=== PATIENT | female | born 1985 | race Caucasian/White ===

== ENCOUNTER → 2017-09-11 | Outpatient (CLI) | payer OTHER ==
--- NOTE | 2017-09-11 17:57 | PN ---
PROGRESS NOTE DATE OF SERVICE: 09/11/2017 This patient is a 32-year-old lady who has been followed in the sleep center for treatment of narcolepsy. She is here to discuss results of her recent sleep study. Patient's recent sleep study was to check patient's breathing during sleep to be sure that she does not have any significant abnormalities of respiration. I discussed the results of her sleep study with the patient in detail. Total index is 2.4, which is in normal range. Apnea-hypopnea in REM sleep increased to 12, but it is not considered by today's criteria to be an indication for CPAP therapy. Oxygen level was below normal only for 0.3 minutes for the whole night. EMG showed 13 periodic limb movements per hour with 0.8 microarousals per hour, but this is very minimal in amount of movements. At the present time, the patient is on treatment with Adderall 10 mg 2 times a day. With this regimen, she feels well, without any side effects of Adderall. PHYSICAL EXAMINATION: Patient in no distress. VITAL SIGNS: BP 125/75, HR around 100, RR 16, height 5 feet 5 inches, weight 188, BMI 31.2, temperature 97.2, oxygen saturation at room air 98%. HEENT: PERRLA, EOMI. Evaluation of oropharynx showed tongue protrudes midline; wide pillars. NECK: Supple. No JVD. Thyroid is not palpable. LUNGS: Clear to percussion and to auscultation. Good air exchange. No wheezing or rhonchi. HEART: S1, S2 regular. No murmurs, gallops or rubs. ABDOMEN: Slightly obese. EXTREMITIES : No clubbing or cyanosis. DIRECTOR OF [facility]HB[facility]HOOD [facility]ICE [facility]: Awake, alert, and oriented X3. Cranial nerves 2 to 7 intact. There is no fasciculation or atrophy. noted. No focal deficits observed. IMPRESSION: 1. Narcolepsy, mostly controlled with Adderall. 2. No significant respiratory abnormalities during sleep by results of polysomnogram. 3. Mild obesity; body mass index 31.2. 4. History of headaches. 5. Thyroid nodule. 6. History of sinusitis with possible nasal septum deviation. PLAN: 1. Sleep hygiene with regular time in bed for at least 7-1/2 or 8 hours. 2. Daytime naps permitted. 3. Patient will continue treatment with Adderall at the same dose. 4. Precautions related to driving. No driving if feeling any sleepiness. 5. Watching and losing weight. Thank you very much for allowing me to participate in the management of your patient. Sincerely, Trey Valle MD, PhD, FAASM Diplomat of [employer] of [facility] MMODL / IJN: [id number] /
== END | disposition home or self-care (01) ==
LOC: SLEEP 14:47
PROVIDERS: ATTEND Internal Medicine
DX: G47.419 Narcolepsy without cataplexy (principal); E66.9 Obesity, unspecified; E04.1 Nontoxic single thyroid nodule; Z68.31 Body mass index [BMI] 31.0-31.9, adult; Z86.69 Personal history of other diseases of the nervous system and sense organs; Z87.09 Personal history of other diseases of the respiratory system; Z79.899 Other long term (current) drug therapy

== ENCOUNTER → 2018-05-29 | Outpatient (CLI) | payer OTHER ==
--- NOTE | 2018-05-29 14:16 | US ---
EXAMINATION TYPE: US pelvis complete transvag DATE OF EXAM: 05/29/2018 COMPARISON: NONE CLINICAL HISTORY: R10.2 Pelvic and perineal pain. TECHNIQUE: . Transabdominal sonographic images of the pelvis were acquired. Transvaginal sonographi c images were medically necessary to better assess the following anatomy: Right ovary Date of LMP: 05/10/2018 EXAM MEASUREMENTS: Uterus: 8.8 x 3.8 x 4.4 cm Endometrial Stripe: 1.0 cm Right Ovary: 4.2 x 3.1 x 3.1 cm Left Ovary: 2.5 x 1.7 x 1.8 cm 1. Uterus: Anteverted Nabothian cysts visualized 2. Endometrium: wnl 3. Right Ovary: Complex cystic area with daughter cyst visualized measuring 1.8 x 2.0 x 2.0 cm 4. Left Ovary: 2.5 x 1.7 x 1.8 cm 5. Bilateral Adnexa: wnl 6. Posterior cul-de-sac: wnl Urinary bladder is visualized appears normal. IMPRESSION: 1. Complex cyst right ovary. Follow-up exam in 6 weeks or following the next normal menstrual period is recommended.
== END | disposition home or self-care (01) ==
LOC: RADUSWWP 13:31
PROVIDERS: ATTEND Family Medicine
DX: N83.291 Other ovarian cyst, right side (principal)
CPT/HCPCS: 76830; 76856

== ENCOUNTER → 2018-06-15 | Outpatient (CLI) | payer OTHER ==
--- NOTE | 2018-06-15 10:57 | US ---
EXAMINATION TYPE: US pelvis complete transvag DATE OF EXAM: 06/15/2018 COMPARISON: Prior pelvic ultrasound 09/29/2017 CLINICAL HISTORY: N83.209 Unspecified ovarian cyst. TECHNIQUE: Transvaginal (TV) and Transabdominal (TA) . Transabdominal sonographic images of the pel vis were acquired. Transvaginal sonographic images were medically necessary to better assess the fol lowing anatomy: Left ovary Date of LMP: 06/07/18 EXAM MEASUREMENTS: Uterus: 8.1 x 3.8 x 4.6 cm Endometrial Stripe: 0.5 cm Right Ovary: 2.2 x 1.3 x 1.4 cm Left Ovary: 2.0 x 1.3 x 1.5 cm 1. Uterus: Anteverted wnl 2. Endometrium: wnl 3. Right Ovary: wnl 4. Left Ovary: wnl 5. Bilateral Adnexa: wnl 6. Posterior cul-de-sac: wnl Rt ovarian cyst appears to have resolved. IMPRESSION: Cystic focus right ovary is no longer evident
== END | disposition home or self-care (01) ==
LOC: RADUSMAIN 08:20
PROVIDERS: ATTEND Family Medicine
DX: N83.209 Unspecified ovarian cyst, unspecified side (principal)
CPT/HCPCS: 76830; 76856

== ENCOUNTER 2020-05-10 02:47 | Emergency (ER) | payer OTHER ==
[2020-05-10 02:56] VITALS: RESP 18
[2020-05-10] MEDS ORDERED: IBUPROFEN 400 MG TAB PO STA (03:23)
[2020-05-10 03:37] LABS: Appearance,Urine Cloudy (Clear); Bacteria,Urine Rare /hpf; Bilirubin,Urine Negative (Negative); Blood,Urine Small (Negative); Budding Yeast,Urine Few /hpf; Color,Urine Light Yellow; Glucose,Urine (UA) Negative (Negative); Ketones,Urine Negative (Negative); Leukocyte Esterase,Urine Large (Negative); Mucus,Urine Rare /hpf; Nitrite,Urine Negative (Negative); Protein,Urine 1+ (Negative); RBC,Urine 26 /hpf (0-5); Specific Gravity,Urine 1.013 (1.001-1.035); Squamous Epithelial Cell,Urine 3 /hpf (0-4); Urobilinogen,Urine <2.0 mg/dL (<2.0); WBC,Urine 41 /hpf (0-5)
--- NOTE | 2020-05-10 04:45 | CT ---
EXAMINATION TYPE: CT abdomen pelvis wo con DATE OF EXAM: 05/10/2020 COMPARISON: None HISTORY: low left back/ flank pain CT DLP: 653.9 mGycm Automated exposure control for dose reduction was used. Lung bases are clear. There is no pleural effusion. Heart size is normal. There is no pericardial eff usion. There are multiple hepatic cysts that measure up to 2 cm. Spleen is intact. Stomach is intact. There is no pancreatic mass. Appendix appears normal. There is no adrenal mass. Kidneys have normal size. There is no hydronephrosis. Ureters are not dilat ed. There is 2 cm renal cortical calcification upper pole right kidney. This could relate to old infl ammatory process. There is no retroperitoneal adenopathy. Bladder distends smoothly. Uterus is anteverted. There is 4.4 x 3.5 cm cyst on the left ovary. There is no inguinal hernia. There is no free fluid in the pelvis. There is no mesenteric edema. There is no ascites or free air. There is no bowel obstruction. Lumbar vertebra have normal alignment. Disc spaces are normal. Posterior elements are intact. Bony pe lvis is intact. Hip joints appear normal. IMPRESSION: Normal appendix. Right-sided renal parenchymal calcification could relate to old infection. No renal stone or obstruction. Large left ovarian cyst. Multiple small hepatic cysts.
[2020-05-10] MEDS ORDERED: SULFAMETHOX-TMP 800-160MG 1 EACH TAB PO STA (04:55)
[2020-05-10] MEDS ORDERED: PHENAZOPYRIDINE 100 MG TAB PO STA (04:55)
--- NOTE | 2020-05-10 04:58 | ED ---
Female Urogenital HPI - General Chief complaint: Urogenital Stated complaint: Abdominal/Back Pain Time Seen by Provider: 05/10/20 03:00 Source: patient Mode of arrival: ambulatory Limitations: no limitations - History of Present Illness Complaint: pelvic pain Onset/Timin -: days(s) Location: LLQ Radiation: non-radiating Severity: moderate Quality: cramping, sharp Consistency: constant Improves with: none Worsens with: none Patient : No - Related Data Previous Rx's Medication Instructions Recorded Phenazopyridine [Pyridium] 100 mg PO TID #6 tablet 05/10/20 Sulfamethox-Tmp 800-160Mg [Bactrim 1 each PO Q12HR #6 tab 05/10/20 Ds] Allergies Allergy/AdvReac Type Severity Reaction Status Date / Time codeine Allergy Hallucinati Verified 05/10/20 02:57 ons Review of Systems ROS Statement: Those systems with pertinent positive or pertinent negative responses have been documented in the HPI. ROS Other: All systems not noted in ROS Statement are negative. Constitutional: Denies: fever, chills Respiratory: Denies: cough, dyspnea Cardiovascular: Denies: chest pain, palpitations, edema Gastrointestinal: Reports: as per HPI, abdominal pain. Denies: nausea, vomiting, diarrhea, constipation, melena, hematochezia Genitourinary: Reports: urgency, frequency. Denies: dysuria, hematuria, discharge, abnormal menses Musculoskeletal: Denies: back pain Skin: Denies: rash Neurological: Denies: headache, weakness, numbness Past Medical History Past Medical History: No Reported History History of Any Multi-Drug Resistant Organisms: None Reported Past Surgical History: Cholecystectomy, Orthopedic Surgery Additional Past Surgical History / Comment(s): cervical CA Past Psychological History: Anxiety, Depression, PTSD Smoking Status: Former smoker Past Alcohol Use History: Occasional Past Drug Use History: Marijuana General Exam Limitations: no limitations General appearance: alert, in no apparent distress Head exam: Present: atraumatic, normocephalic Eye exam: Present: normal appearance. Absent: scleral icterus, conjunctival injection ENT exam: Present: normal oropharynx Respiratory exam: Present: normal lung sounds bilaterally. Absent: respiratory distress, wheezes, rales, rhonchi, stridor Cardiovascular Exam: Present: regular rate, normal rhythm, normal heart sounds. Absent: systolic murmur, diastolic murmur, rubs, gallop GI/Abdominal exam: Present: soft, tenderness (There is mild left lower quadrant tenderness without rebound or guarding.). Absent: distended, guarding, rebound, rigid, mass Extremities exam: Present: normal inspection, normal capillary refill. Absent: pedal edema, calf tenderness Back exam: Present: normal inspection. Absent: CVA tenderness (R), CVA tenderness (L) Neurological exam: Present: alert Skin exam: Present: warm, dry, intact, normal color. Absent: rash Course Vital Signs 05/10/20 05/10/20 02:52 05:04 Temperature 98.1 F 98.8 F Pulse Rate 102 H 80 Respiratory 18 18 Rate Blood Pressure 133/82 124/72 O2 Sat by Pulse 100 18 L Oximetry Medical Decision Making - Lab Data Lab Results 05/10/20 05/10/20 Range/Units 03:27 03:27 Urine Color Light Yellow Urine Appearance Cloudy H (Clear) Urine pH 7.0 (5.0-8.0) Ur Specific [place] 1.013 (1.001-1.035) Urine Protein 1+ H (Negative) Urine Glucose (UA) Negative (Negative) Urine Ketones Negative (Negative) Urine Blood Small H (Negative) Urine Nitrite Negative (Negative) Urine Bilirubin Negative (Negative) Urine Urobilinogen <2.0 (<2.0) mg/dL Ur Leukocyte Esterase Large H (Negative) Urine RBC 26 H (0-5) /hpf Urine WBC 41 H (0-5) /hpf Urine WBC Clumps Few H (None) /hpf Ur Squamous Epith Cells 3 (0-4) /hpf Urine Bacteria Rare H (None) /hpf Urine Mucus Rare H (None) /hpf Urine Yeast (Budding) Few H (None) /hpf Urine HCG, Qual Not Detected (Not Detectd) Disposition Clinical Impression: Urinary tract infection, Ovarian cyst Disposition: HOME SELF-CARE Condition: Good Instructions (If sedation given, give patient instructions): Ovarian Cyst (ED), Urinary Tract Infection in Women (ED) Prescriptions: Sulfamethox-Tmp 800-160Mg [Bactrim Ds] 1 each PO Q12HR #6 tab Phenazopyridine [Pyridium] 100 mg PO TID #6 tablet Is patient prescribed a controlled substance at d/c from ED?: No Referrals: Angelia Victor MD [Primary Care Provider] - 1-2 days
[2020-05-10 05:05] VITALS: BP 124/72; PULSE 80; TEMP 98.8
== END 2020-05-10 05:28 | disposition home or self-care (01) ==
LOC: EC 02:47
DX: N39.0 Urinary tract infection, site not specified (principal); N83.202 Unspecified ovarian cyst, left side; Z88.5 Allergy status to narcotic agent; Z87.891 Personal history of nicotine dependence; Z90.49 Acquired absence of other specified parts of digestive tract; Z85.41 Personal history of malignant neoplasm of cervix uteri
CPT/HCPCS: 74176; 81001; 81025; 99284

== ENCOUNTER → 2020-05-17 | Outpatient (CLI) | payer OTHER ==
[2020-05-17 09:24] LABS: Basophils # (A) 0.1 k/uL (0-0.2); Basophils % (A) 1 %; Eosinophils # (A) 0.2 k/uL (0-0.7); Eosinophils % (A) 3 %; HCT 42.3 % (34.0-46.0); HGB 13.3 gm/dL (11.4-16.0); Lymphocytes # (A) 2.3 k/uL (1.0-4.8); Lymphocytes % (A) 28 %; MCH 26.5 pg (25.0-35.0); MCHC 31.4 g/dL (31.0-37.0); MCV 84.5 fL (80.0-100.0); Mean Platelet Volume 7.7; Monocytes # (A) 0.4 k/uL (0-1.0); Monocytes % (A) 5 %; Neutrophils % (A) 62 %; Platelet Count 299 k/uL (150-450); RDW 13.6 % (11.5-15.5)
[2020-05-17 17:06] LABS: African American GFR (CKD) 109.9 (60.0-200.0); Albumin 4.1 g/dL (3.80-4.90); Albumin/Globulin Ratio 1.95 (1.60-3.17); Anion Gap 9.4 mmol/L (4.00-12.00); BUN/Creat Ratio 17.5 Ratio (12.00-20.00); Calcium 9.2 mg/dL (8.7-10.3); Carbon Dioxide 24.6 mmol/L (21.6-31.8); Chol/HDL Ratio 3.54; Globulin 2.1 g/dL (1.6-3.3); LDL Cholesterol,Calculated 113.4 mg/dL (0.0-131.0); Non-African American GFR(CKD) 94.8 (60.0-200.0); Potassium 4.5 mmol/L (3.5-5.5); Total Bilirubin 0.7 mg/dL (0.2-1.2); Total Protein 6.2 g/dL (6.2-8.2); VLDL Calculation 13.6 mg/dL (5.00-40.00)
[2020-05-19 01:22] LABS: % Iron Saturation 10.86 (12.00-45.00)
[2020-05-19 01:31] LABS: Ferritin 21.1 ng/mL (10.0-291.0)
== END | disposition home or self-care (01) ==
LOC: LABWHC1 08:30
PROVIDERS: ATTEND Family Medicine
DX: E04.1 Nontoxic single thyroid nodule (principal); Q85.00 Neurofibromatosis, unspecified
CPT/HCPCS: 36415; 80053; 80061; 82728; 83540; 83550; 84443; 85025

== ENCOUNTER → 2020-05-29 | Outpatient (CLI) | payer OTHER ==
--- NOTE | 2020-05-30 07:37 | US ---
EXAMINATION TYPE: US thyroid st tissue head/neck DATE OF EXAM: 05/29/2020 COMPARISON: NONE CLINICAL HISTORY: E04.1 SINGLE THYROID NODULE. GLAND SIZE: Right Lobe: 4.4 x 1.6 x 1.9 cm Overall Parenchyma: heterogenous Left Lobe: 5.2 x 1.4 x 1.7 cm Overall Parenchyma: heterogeneous Isthmus Thickness: 0.5 cm NODULES RIGHT: # of nodules measured on right: 0 LEFT: # of nodules measured on left: 1 1. 0.9 X 0.6 x 0.9 cm hypoechoic solid nodule at the lower pole with well-defined margins; . This nodule is wider than tall and shows no intranodular vascularity. Prior size: 1.0 x 0.6 x 0.7 cm ISTHMUS: # of nodules measured in the isthmus: 0 Bilateral neck scanned, no evidence of lymphadenopathy. IMPRESSION: Nonspecific subcentimeter thyroid nodularity.
--- NOTE | 2020-05-30 07:38 | US ---
EXAMINATION TYPE: US pelvic complete DATE OF EXAM: 05/29/2020 COMPARISON: US 06/15/2018, CT 05/10/2020 CLINICAL HISTORY: N83.202 LT OVARIAN CYST. Follow up to CT TECHNIQUE: . Transabdominal sonographic images of the pelvis were acquired. Date of LMP: 1 week ago EXAM MEASUREMENTS: Uterus: 9.4 x 3.9 x 4.8 cm Endometrial Stripe: 0.7 cm Right Ovary: 2.5 x 2.0 x 1.7 cm Left Ovary: 2.4 x 1.9 x 2.7 cm 1. Uterus: Anteverted wnl 2. Endometrium: wnl 3. Right Ovary: wnl 4. Left Ovary: Cyst visualized measuring 1.6 x 1.3 x 1.5 cm 5. Bilateral Adnexa: wnl 6. Posterior cul-de-sac: wnl IMPRESSION: Probable functional left ovarian cyst. This could be confirmed with follow-up study in 6 weeks.
== END | disposition home or self-care (01) ==
LOC: RADUSWWP 15:19
PROVIDERS: ATTEND Family Medicine
DX: E04.2 Nontoxic multinodular goiter (principal); N83.202 Unspecified ovarian cyst, left side
CPT/HCPCS: 76536; 76856

== ENCOUNTER → 2021-01-17 | Outpatient (CLI) | payer OTHER ==
--- NOTE | 2021-01-18 11:38 | US ---
EXAMINATION TYPE: US thyroid st tissue head/neck DATE OF EXAM: 01/17/2021 COMPARISON: US's 05/29/2020 CLINICAL HISTORY: E04.9 nontoxic goiter. GLAND SIZE: Right Lobe: 5.0 x 1.3 x 1.1 cm Overall Parenchyma: homogenous Left Lobe: 5.1 x 1.4 x 1.7 cm Overall Parenchyma: homogeneous Isthmus Thickness: 0.4 cm NODULES RIGHT: # of nodules measured on right: 0 LEFT: # of nodules measured on left: 1 1. 1.1 X 0.7 x 0.8 cm, lower lateral, solid or almost completely solid, hypoechoic nodule, which is wider than tall, with smooth margins, without echogenic foci. Prior size: 0.9 x 0.6 x 0.9 cm ISTHMUS: # of nodules measured in the isthmus: 0 Bilateral neck scanned, no evidence of lymphadenopathy. IMPRESSION: Single 1.1 cm left thyroid nodule is a BI-RADS 4 nodule. This has minimally increased in size since p rior exam. This is within the criteria for continued sonographic follow-up. 2017 ACR TI-RADS LEVEL: 4 Highest TI-RADS level nodule reported
== END | disposition home or self-care (01) ==
LOC: RADUSWWP 16:49
PROVIDERS: ATTEND Family Medicine
DX: E04.1 Nontoxic single thyroid nodule (principal)
CPT/HCPCS: 76536

== ENCOUNTER → 2021-02-01 | Outpatient (CLI) | payer OTHER ==
--- NOTE | 2021-02-01 18:23 | ECHOF ---
Referral Reason:R06.09 Dysnea on exertion MEASUREMENTS -------- HEIGHT: 165.1 cm WEIGHT: 88.9 kg BP: RVIDd: 3.3 cm (< 3.3) IVSd: 0.9 cm (0.6 - 1.1) LVIDd: 4.1 cm (3.9 - 5.3) LVPWd: 1.2 cm (0.6 - 1.1) IVSs: 1.3 cm LVIDs: 3.0 cm LVPWs: 1.4 cm LAESV Index (A-L): 20.19 ml/m Ao Diam: 2.9 cm (2.0 - 3.7) AV Cusp: 2.1 cm (1.5 - 2.6) MV EXCURSION: 23.384 mm (> 18.000) MV EF SLOPE: 194 mm/s (70 - 150) EPSS: 1.2 cm MV E Eduardo: 0.88 m/s MV DecT: 216 ms MV A Eduardo: 0.58 m/s MV E/A Ratio: 1.52 RAP: 5.00 mmHg RVSP: 32.80 mmHg FINDINGS -------- Sinus rhythm. This was a technically adequate study. The left ventricular size is normal. Left ventricular wall thickness is normal. Overall left vent ricular systolic function is normal with, an EF between 55 - 60 %. The diastolic filling pattern is normal for the age of the patient 9.06. The right ventricle is mildly enlarged. Normal LA size by volume 22+/-6 ml/m2. The right atrium is mildly enlarged. Interatrial and interventricular septum intact. The aortic valve is trileaflet, and appears structurally normal. No aortic stenosis or regurgitation. The mitral valve is normal. There is trace mitral regurgitation. The tricuspid valve appears structurally normal. Mild tricuspid regurgitation present. Right vent ricular systolic pressure is normal at < 35 mmHg. The right ventricular systolic pressure, as measu red by Doppler, is 32.80mmHg. There is no pulmonic regurgitation present. The aortic root size is normal. Normal inferior vena cava with normal inspiratory collapse consistent with estimated right atrial pre ssure of 5 mmHg. There is no pericardial effusion. CONCLUSIONS -------- 1. Left ventricular wall thickness is normal. 2. Overall left ventricular systolic function is normal with, an EF between 55 - 60 %. 3. The right ventricle is mildly enlarged. 4. Normal LA size by volume 22+/-6 ml/m2. 5. The right atrium is mildly enlarged. 6. The aortic valve is trileaflet, and appears structurally normal. No aortic stenosis or regurgitati on. 7. There is trace mitral regurgitation. 8. Mild tricuspid regurgitation present. OFFICE ANALYST: Melonie Tillman RDCS
== END | disposition home or self-care (01) ==
LOC: RADECHMAIN 13:00
PROVIDERS: ATTEND Family Medicine
DX: I08.1 Rheumatic disorders of both mitral and tricuspid valves (principal)
CPT/HCPCS: 93306

== ENCOUNTER → 2021-09-26 | Outpatient (CLI) | payer OTHER ==
--- NOTE | 2021-09-27 09:23 | NM ---
EXAMINATION TYPE: NM thyroid image w uptake DATE OF EXAM: 09/27/2021 COMPARISON: Ultrasound dated 08/27/2021, 01/17/2021 HISTORY: E04.1, thyroid nodule TECHNIQUE: Thyroid iodine uptake is calculated and images performed after the oral administration of 312 uCi 1-123 Capsule. FINDINGS: There is suspected increased uptake. The 4 hour iodine uptake is calculated at 17.1% (norm al range 8-14%). The 24-hour iodine uptake is calculated at 40.7% (normal range 15-35%). Uptake is homogenous but increased. Equivocal for decreased uptake at the posterior aspect of the lef t lobe of the gland corresponding to patient's thyroid nodule. Measurement of the thyroid nodule was thought to be under represented. True measurements is estimated at 1.5 cm. IMPRESSION: Correlate for possible Graves' disease. Recommend fine-needle aspiration of patient's lef t lower lobe thyroid nodule.
== END | disposition home or self-care (01) ==
LOC: RADNMMAIN 08:36
PROVIDERS: ATTEND Family Medicine
DX: E04.1 Nontoxic single thyroid nodule (principal)
CPT/HCPCS: 78014; A9516

== ENCOUNTER 2021-10-17 12:30 | Day surgery (SDC) | payer OTHER ==
[2021-10-17] MEDS ORDERED: ALPRAZolam 0.5 MG TAB PO PRN (13:26)
[2021-10-17 13:28] VITALS: TEMP 98.6
[2021-10-17 15:09] VITALS: BP 120/66; PULSE 78; RESP 18
--- NOTE | 2021-10-17 15:13 | US ---
EXAMINATION TYPE: US FNA thyroid first lesion DATE OF EXAM: 10/17/2021 COMPARISON: NONE HISTORY: Thyroid nodule. Maximal barrier technique was utilized. After informed consent, skin overlying the left thyroid nodu le was localized with ultrasound and the overlying skin prepped and draped. Ultrasound was utilized u sing sterile technique. Lidocaine was used for local anesthesia. Five passes with a 25-gauge needle were made into the nodule and aspirated specimen was submitted to cytology. Following the procedure hemostasis achieved. No immediate complication. The patient discharged in stable condition. IMPRESSION: STATUS POST ULTRASOUND GUIDED FINE NEEDLE ASPIRATION OF LEFT THYROID NODULE, PATHOLOGY IS PENDING. THIS PROCEDURE WAS PERFORMED BY THE UNDERSIGNED.
== END 2021-10-17 15:10 | disposition home or self-care (01) ==
LOC: RADPROMAIN 12:30
PROVIDERS: ATTEND Family Medicine
DX: E04.1 Nontoxic single thyroid nodule (principal)
CPT/HCPCS: 10005; 88173; 88305

== ENCOUNTER → 2022-03-22 | Outpatient (CLI) | payer OTHER | END | disposition home or self-care (01) | LOC: LABWHC1 16:14 | PROVIDERS: ATTEND Family Medicine | DX: E04.1 Nontoxic single thyroid nodule (principal) | CPT/HCPCS: 36415; 84439; 84443; 84481 ==

== ENCOUNTER 2023-10-21 19:42 | Inpatient (IN) | payer OTHER ==
[2023-10-21] MEDS: LACTATED RINGERS 1,000 ML IV ONE ×2 (00:14→01:55)
--- NOTE | 2023-10-21 20:06 | ED ---
General Adult HPI - General Chief complaint: OB/Uterine Contractions Stated complaint: vaginal bleeding possibly Time Seen by Provider: 10/21/23 19:50 Source: patient Mode of arrival: ambulatory Limitations: no limitations - History of Present Illness Initial comments: 38-year-old female presenting with chief complaint of vaginal bleeding. Patient states that her LMP was 08/12/2023. menstrual cycle was different than her normal menstrual cycles, it seemed to be much heavier than usual. After that she did not have any bleeding until October 14 when she had some spotting. She reports that for the last 5 days she has had heavy vaginal bleeding with large palm sized clots. She took a test at home tonight which was positive. She is a . - Related Data Home Medications Medication Instructions Recorded Confirmed modafiniL [Provigil] 200 mg PO DAILY 10/09/21 10/17/21 Allergies Allergy/AdvReac Type Severity Reaction Status Date / Time codeine Allergy Hallucinati Verified 10/21/23 19:48 ons Review of Systems ROS Statement: Those systems with pertinent positive or pertinent negative responses have been documented in the HPI. ROS Other: All systems not noted in ROS Statement are negative. Past Medical History Past Medical History: Cancer, Thyroid Disorder Additional Past Medical History / Comment(s): thyroid, had irreg heart beat x 8 weeks post covid vaccine. cervical cancer - had surgery History of Any Multi-Drug Resistant Organisms: None Reported Past Surgical History: Cholecystectomy, Orthopedic Surgery Additional Past Surgical History / Comment(s): cervical CA, wrist surgery Additional Past Anesthesia/Blood Transfusion Reaction / Comment(s): heart palpitation with surgeries in past. Past Psychological History: Anxiety, Depression, PTSD Smoking Status: Former smoker Past Alcohol Use History: Occasional Past Drug Use History: Marijuana General Exam Limitations: no limitations General appearance: alert, in no apparent distress Head exam: Present: atraumatic, normocephalic Eye exam: Present: normal appearance Neck exam: Present: normal inspection Respiratory exam: Present: normal lung sounds bilaterally. Absent: respiratory distress, wheezes, rales, rhonchi, stridor Cardiovascular Exam: Present: normal rhythm, tachycardia, normal heart sounds. Absent: systolic murmur, diastolic murmur, rubs, gallop, clicks GI/Abdominal exam: Present: soft, tenderness (Lower abdominal). Absent: distended, guarding, rebound, rigid Neurological exam: Present: alert, oriented X3 Psychiatric exam: Present: normal affect, normal mood Skin exam: Present: warm, dry Course Vital Signs 10/21/23 10/21/23 19:43 23:15 Temperature 98.6 F Pulse Rate 120 H 81 Respiratory 18 18 Rate Blood Pressure 124/72 125/75 O2 Sat by Pulse 98 98 Oximetry Medical Decision Making - Medical Decision Making Was pt. sent in by a medical professional or institution (, PA, OUTSIDE MAINTENANCE WORKER, urgent care, hospital, or detention...) When possible be specific @ -No Did you speak to anyone other than the patient for history (EMS, parent, family, police, friend...)? What history was obtained from this source @ -No Did you review nursing and triage notes (agree or disagree)? Why? @ -I reviewed and agree with nursing and triage notes Were old charts reviewed (outside hosp., previous admission, EMS record, old EK G, old radiological studies, urgent care reports/EKG's, detention records)? Report findings @ -No old charts were reviewed Differential Diagnosis (chest pain, altered mental status, abdominal pain women, abdominal pain men, vaginal bleeding, weakness, fever, dyspnea, syncope, headache, dizziness, GI bleed, back pain, seizure, CVA, palpatations, mental health, musculoskeletal)? @ -MDM Differential Vaginal Bleeding: Spontaneous , threatened , molar , ectopic , bloody show, incompetent cervix, abruptioplacenta, placenta previa, uterine rupture, dysfunctional uterine bleeding, hemorrhage, uterine fibroids. ... This is not meant to be an all-inclusive list EKG interpreted by me (3pts min.). @ -As above X-rays interpreted by me (1pt min.). @ -None done CT interpreted by me (1pt min.). @ -None done U/S interpreted by me (1pt. min.). @ -Ultrasound shows complex right adnexal lesion with vascularity in a patient with positive test and no sign of intrauterine gestation. Findings are concerning for ectopic What testing was considered but not performed or refused? (CT, X-rays, U/S, labs)? Why? @ -None What meds were considered but not given or refused? Why? @ -None Did you discuss the management of the patient with other professionals (professionals i.e. , PA, OUTSIDE MAINTENANCE WORKER, lab, RT, psych nurse, social media marketer, rubber goods finisher, teacher, financial compliance officer, case planner)? Give summary @ -I spoke with Dr. Boyle who came down to the ER and evaluated the patient, it was determined that the patient should go to the OR tonight Was smoking cessation discussed for >3mins.? @ -No Was critical care preformed (if so, how long)? @ -No Were there social determinants of health that impacted care today? How? (Homelessness, low income, unemployed, alcoholism, drug addiction, transportation, low edu. Level, literacy, decrease access to med. care, detention, rehab)? @ -No Was there de-escalation of care discussed even if they declined (Discuss DNR or withdrawal of care, Hospice)? DNR status @ -No What co-morbidities impacted this encounter? (DM, HTN, Smoking, COPD, CAD, Cancer, CVA, ARF, Chemo, Hep., AIDS, mental health diagnosis, sleep apnea, morbid obesity)? @ -None Was patient admitted / discharged? Hospital course, mention meds given and route, prescriptions, significant lab abnormalities, going to OR and other pertinent info. @ -38-year-old female presenting with chief complaint of right-sided pelvic pain and vaginal bleeding. She has had spotting since the end of September, for the last 5 days she has had heavy vaginal bleeding. hCG is 21,348.5. Hemoglobin is stable at 11.6. The patient is hemodynamically stable. Ultrasound is positive for ectopic . Blood type is A+. Patient is evaluated by Dr. Boyle and taken to the OR. I discussed this case with my attending Dr. Melchor Undiagnosed new problem with uncertain prognosis? @ -No Drug Therapy requiring intensive monitoring for toxicity (Heparin, Nitro, Insulin, Cardizem)? @ -No Were any procedures done? @ -No Diagnosis/symptom? @ -Ectopic Acute, or Chronic, or Acute on Chronic? @ -Acute Uncomplicated (without systemic symptoms) or Complicated (systemic symptoms)? @ -Complicated Side effects of treatment? @ -No Exacerbation, Progression, or Severe Exacerbation? @ -No Poses a threat to life or bodily function? How? (Chest pain, USA, NC, pneumonia, PE, COPD, DKA, ARF, appy, cholecystitis, CVA, Diverticulitis, Homicidal, Suicidal, threat to staff... and all critical care pts) @ -Yes - Lab Data Result diagrams: 10/21/23 20:05 10/21/23 20:05 Lab Results 10/21/23 10/21/23 10/21/23 Range/Units 20:05 20:05 20:05 WBC 9.7 (3.8-10.6) k/uL RBC 4.28 (3.80-5.40) m/uL Hgb 11.6 (11.4-16.0) gm/dL Hct 34.6 (34.0-46.0) % MCV 81.0 (80.0-100.0) fL MCH 27.2 (25.0-35.0) pg MCHC 33.6 (31.0-37.0) g/dL RDW 13.9 (11.5-15.5) % Plt Count 225 (150-450) k/uL MPV 8.5 Neutrophils % 63 % Lymphocytes % 27 % Monocytes % 5 % Eosinophils % 3 % Basophils % 0 % Neutrophils # 6.1 (1.3-7.7) k/uL Lymphocytes # 2.6 (1.0-4.8) k/uL Monocytes # 0.5 (0-1.0) k/uL Eosinophils # 0.3 (0-0.7) k/uL Basophils # 0.0 (0-0.2) k/uL PT 10.4 (10.0-12.5) sec INR 0.9 (<1.2) APTT 26.4 (22.0-30.0) sec Sodium 136 L (137-145) mmol/L Potassium 3.6 (3.5-5.1) mmol/L Chloride 106 (98-107) mmol/L Carbon Dioxide 22 (22-30) mmol/L Anion Gap 8 mmol/L BUN 20 H (7-17) mg/dL Creatinine 0.56 (0.52-1.04) mg/dL Est GFR (CKD-EPI)AfAm >90 (>60 ml/min/1.73 sqM) Est GFR (CKD-EPI)NonAf >90 (>60 ml/min/1.73 sqM) Glucose 111 H (74-99) mg/dL Calcium 8.9 (8.4-10.2) mg/dL Total Bilirubin 1.1 (0.2-1.3) mg/dL AST 20 (14-36) U/L ALT 16 (4-34) U/L Alkaline Phosphatase 56 (38-126) U/L Total Protein 6.6 (6.3-8.2) g/dL Albumin 3.9 (3.5-5.0) g/dL HCG, Quant 90719.5 mIU/mL Blood Type Blood Type Recheck Bld Type Recheck Status Antibody Screen Spec Expiration Date 10/21/23 Range/Units 20:05 WBC (3.8-10.6) k/uL RBC (3.80-5.40) m/uL Hgb (11.4-16.0) gm/dL Hct (34.0-46.0) % MCV (80.0-100.0) fL MCH (25.0-35.0) pg MCHC (31.0-37.0) g/dL RDW (11.5-15.5) % Plt Count (150-450) k/uL MPV Neutrophils % % Lymphocytes % % Monocytes % % Eosinophils % % Basophils % % Neutrophils # (1.3-7.7) k/uL Lymphocytes # (1.0-4.8) k/uL Monocytes # (0-1.0) k/uL Eosinophils # (0-0.7) k/uL Basophils # (0-0.2) k/uL PT (10.0-12.5) sec INR (<1.2) APTT (22.0-30.0) sec Sodium (137-145) mmol/L Potassium (3.5-5.1) mmol/L Chloride (98-107) mmol/L Carbon Dioxide (22-30) mmol/L Anion Gap mmol/L BUN (7-17) mg/dL Creatinine (0.52-1.04) mg/dL Est GFR (CKD-EPI)AfAm (>60 ml/min/1.73 sqM) Est GFR (CKD-EPI)NonAf (>60 ml/min/1.73 sqM) Glucose (74-99) mg/dL Calcium (8.4-10.2) mg/dL Total Bilirubin (0.2-1.3) mg/dL AST (14-36) U/L ALT (4-34) U/L Alkaline Phosphatase (38-126) U/L Total Protein (6.3-8.2) g/dL Albumin (3.5-5.0) g/dL HCG, Quant mIU/mL Blood Type A Positive Blood Type Recheck A Pos Bld Type Recheck Status No Antibody Screen NEGATIVE Spec Expiration Date 10/24/20232304 Disposition Clinical Impression: Ectopic Disposition: ADMITTED IP TO THIS [facility] Condition: Serious Time of Disposition: 22:57
[2023-10-21] MEDS: SODIUM CHLORIDE 0.9% 1,000 ML IV ONE (20:17)
[2023-10-21 20:21] LABS: Basophils % (A) 0 %; Eosinophils # (A) 0.3 k/uL (0-0.7); Eosinophils % (A) 3 %; HCT 34.6 % (34.0-46.0); HGB 11.6 gm/dL (11.4-16.0); Lymphocytes # (A) 2.6 k/uL (1.0-4.8); Lymphocytes % (A) 27 %; MCH 27.2 pg (25.0-35.0); MCHC 33.6 g/dL (31.0-37.0); Mean Platelet Volume 8.5; Monocytes # (A) 0.5 k/uL (0-1.0); Monocytes % (A) 5 %; Neutrophils # (A) 6.1 k/uL (1.3-7.7); Neutrophils % (A) 63 %; Platelet Count 225 k/uL (150-450); RBC 4.28 m/uL (3.80-5.40); RDW 13.9 % (11.5-15.5); WBC 9.7 k/uL (3.8-10.6)
[2023-10-21 20:31] LABS: INR 0.9 (<1.2); Partial Thromboplastin Time 26.4 sec (22.0-30.0); Prothrombin Time 10.4 sec (10.0-12.5)
[2023-10-21 20:35] LABS: ALT 16 U/L (4-34); AST 20 U/L (14-36); African American GFR (CKD) >90 (>60 ml/min/1.73 sqM); Albumin 3.9 g/dL (3.5-5.0); Alkaline Phosphatase 56 U/L (38-126); Anion Gap 8 mmol/L; Blood Urea Nitrogen 20 mg/dL (7-17); Calcium 8.9 mg/dL (8.4-10.2); Carbon Dioxide 22 mmol/L (22-30); Chloride 106 mmol/L (98-107); Glucose 111 mg/dL (74-99); Non-African American GFR(CKD) >90 (>60 ml/min/1.73 sqM); Potassium 3.6 mmol/L (3.5-5.1); Sodium 136 mmol/L (137-145); Total Bilirubin 1.1 mg/dL (0.2-1.3); Total Protein 6.6 g/dL (6.3-8.2)
[2023-10-21 21:26] LABS: HCG,Quantitative Serum 21348.5 mIU/mL
--- NOTE | 2023-10-21 21:58 | US ---
EXAMINATION TYPE: Transabdominal DATE OF EXAM: 10/21/2023 9:45 PM COMPARISON: NONE CLINICAL INDICATION: Female, 38 years old with history of pain, bleeding; right sided pelvic pain and vaginal bleeding. Pt states the pain was a 9/10. Started spotting 3 weeks ago and heavy bleeding las t night. . EXAM PERFORMED: Transvaginal (TV) and Transabdominal (TA) EXAM MEASUREMENTS: GESTATIONAL AGE / DATING Physician Established: Not yet established Dates by LMP: LMP unknown Dates by First Scan: No previous this is first scan Dates by Current Scan for: No IUP seen at this time MATERNAL ANATOMY Uterus: 10.5 x 6.4 x 4.1cm Right Ovary: 2.9 x 1.9 x 2.3cm Left Ovary: 3.2 x 2.6 x 2.4cm Post CDS / Adnexa: Large complex area seen adjacent to right ovary measuring 4.5 x 3.4 x 3.2cm Presence of free fluid: Yes in right adnexa Presence of corpus luteal cyst: No Presence of subchorionic bleed: No GESTATION / SURVEY CRL: Not seen MSD: Not seen Date of LMP: Irregular periods Beta HcG (if available): 43137.5 Empty uterus. Large complex structure with vascularity seen in right adnexa adjacent to the ovary. Fr ee fluid seen in right adnexa. IMPRESSION: Complex right adnexal lesion with vascularity in a patient with positive test and no sign o f intrauterine gestation. Findings are concerning for ectopic . Findings were called to and discussed with provider Sangeetha on 10/21/[address] Vega.
[2023-10-21] MEDS ORDERED: NALOXONE 0.4 MG/ML 1 ML VIAL IV PRN (23:14)
--- NOTE | 2023-10-21 23:18 | P.HPOB ---
History of Present Illness H&P Date: 10/21/23 Chief Complaint: Vaginal bleeding and pelvic pain This is a 38-year-old 3 para 1011 woman with an LMP of 08/12/2023 who presents with a 3 week history of vaginal bleeding and worsening right-sided pelvic pain over the last 72 hours. She had a positive home test. Upon presentation to the emergency room she had a positive serum hCG of greater than 21,000. Ultrasound shows complex right adnexal mass adjacent to the ovary approximately 4.5 x 3 cm with some free fluid in the pelvis. There is no evidence of intrauterine . This is consistent with ectopic . She has a history of one previous normal spontaneous vaginal delivery and 1 m iscarriage. She is not had care in this . And was not using contraception. Review of Systems Constitutional: Denies chills, Denies fever Cardiovascular: Denies chest pain, Denies high blood pressure, Denies shortness of breath Respiratory: Denies cough Gastrointestinal: Reports abdominal pain, Denies BRBPR, Denies melena, Denies nausea, Denies vomiting Genitourinary: Reports abnormal vaginal bleeding, Reports pelvic pain, Denies dyspareunia, Denies dysuria, Denies flank pain, Denies vaginal discharge Menstruation: Reports as per HPI Musculoskeletal: Reports low back pain Integumentary: Denies rash Hematologic/Lymphatic: Denies easy bleeding, Denies easy bruising Past Medical History Past Medical History: Cancer, Thyroid Disorder Additional Past Medical History / Comment(s): thyroid, had irreg heart beat x 8 weeks post covid vaccine. cervical cancer - had surgery History of Any Multi-Drug Resistant Organisms: None Reported Past Surgical History: Cholecystectomy, Orthopedic Surgery Additional Past Surgical History / Comment(s): cervical CA, wrist surgery Additional Past Anesthesia/Blood Transfusion Reaction / Comment(s): heart palpitation with surgeries in past. Past Psychological History: Anxiety, Depression, PTSD Smoking Status: Former smoker Past Alcohol Use History: Occasional Past Drug Use History: Marijuana Medications and Allergies Home Medications Medication Instructions Recorded Confirmed Type modafiniL [Provigil] 200 mg PO DAILY 10/09/21 10/17/21 History Allergies Allergy/AdvReac Type Severity Reaction Status Date / Time codeine Allergy Hallucinati Verified 10/21/23 19:48 ons Exam Vital Signs Temp Pulse Resp BP Pulse Ox 10/21/23 19:43 98.6 F 120 H 18 124/72 98 Intake and Output 10/21/23 10/21/23 10/22/23 14:59 22:59 06:59 Other: Weight 90.718 kg This is a somewhat pale-appearing but otherwise comfortable female in no acute distress. Targeted physical exam is performed. Her breathing is unlabored and her heart is a regular rate. The abdomen is soft with right lower quadrant pain, no rebound or guarding. Pelvic examination is deferred as this was performed by the emergency room PA, at that time they described moderate va ginal bleeding. Gross neurologic deficits. Mood and affect are appropriate. Results Result Diagrams: 10/21/23 20:05 10/21/23 20:05 Abnormal Lab Results - Last 24 Hours (Table) 10/21/23 Range/Units 20:05 Sodium 136 L (137-145) mmol/L BUN 20 H (7-17) mg/dL Glucose 111 H (74-99) mg/dL US - abdomen: image reviewed (Complex right adnexal mass measuring 4.5 x 3.4 x 3.2 cm with free fluid. No IUP noted) Assessment and Plan (1) Ectopic Current Visit: Yes Status: Acute Code(s): O00.90 - UNSPECIFIED ECTOPIC WITHOUT INTRAUTERINE SNOMED Code(s): 67410300 Plan: This is a 38-year-old 3 para 10-1 woman with probable right-sided ectopic . She has a right adnexal mass, vaginal bleeding and serum hCG is greater than 21,000. Findings were reviewed with the patient and her family members in detail. I do recommend exploratory laparotomy with probable right salpingectomy possible right salpingo-oophorectomy and indicated surgery. Alternatives to the procedure include observation which I do not recommend. She is not a candidate for methotrexate. Risks of the procedure were reviewed with the patient and include bleeding, transfusion, infection, damage to bowel, b ladder, ureters and/or other pelvic structures, anesthesia complications, DVT, PE and or . Patient understands these risks and consent is obtained. The anesthesiology and or teams were notified. Her blood type is Rh+.
[2023-10-22] MEDS ORDERED: LIDOCAINE 1% INJ 10MG/ML (20 ML MDV) ONE (00:16)
[2023-10-22] MEDS ORDERED: PROPOFOL 10 MG/ML 20 ML VIAL IV ONE (00:16)
[2023-10-22] MEDS ORDERED: MIDAZOLAM 2 MG/2 ML VIAL ONE (00:16)
[2023-10-22] MEDS ORDERED: SUCCINYLCHOLINE CHLORIDE 200 MG/10 ML VIAL IV ONE (00:16)
[2023-10-22] MEDS ORDERED: NEOSTIGMINE 1 MG/ML 10 ML VIAL ONE (00:16)
[2023-10-22] MEDS ORDERED: HYDROmorphone (PF) 1 MG/ML ONE (00:16)
[2023-10-22] MEDS ORDERED: fentaNYL (PF) 50 MCG/ML 2 ML AMP ONE (00:16)
[2023-10-22] MEDS ORDERED: GLYCOPYRROLATE 0.2 MG/ML 2 ML VIAL ONE (00:16)
[2023-10-22] MEDS ORDERED: ROCURONIUM 10 MG/ML (5 ML VIAL) IV ONE (00:16)
[2023-10-22] MEDS: CELLULOSE,OXIDIZED 1 EACH EACH MISCELLANE ONE (00:58)
[2023-10-22] MEDS ORDERED: diphenhydrAMINE 50 MG/ML 1 ML VIAL IVP PRN (01:23)
[2023-10-22] MEDS ORDERED: ONDANSETRON 4 MG/2 ML VIAL IVP PRN (01:23)
--- NOTE | 2023-10-22 01:23 | P.OP ---
Date of Procedure: 10/22/23 Preoperative Diagnosis: Right ectopic Postoperative Diagnosis: Same Procedure(s) Performed: Exploratory laparotomy with right salpingectomy Anesthesia: STEFANIE Surgeon: Vera Boyle Estimated Blood Loss (ml): 50 IV fluids (ml): 700 Urine output (ml): 50 Pathology: other (Right fallopian tube and ectopic ) Condition: stable Disposition: PACU Indications for Procedure: Findings of 4 cm complex adnexal mass with beta hCG greater than 21,000, no intrauterine Operative Findings: Enlarged right fallopian tube approximately 5 cm consistent with ectopic . Minimal hemoperitoneum. Normal-appearing uterus, left fallopian tube and left ovary. Description of Procedure: After the patient was counseled and consent was obtained she was taken to the operating room where anesthetic was administered without incident, she was in position prepped and draped in the dorsal supine position with Banks catheter in place. A low transverse skin incision was made and carried down to the underlying fascia sharply. Fascia incised in the midline and extended bilaterally with the Jung scissors. Inferior and superior aspect of the fascial incision were elevated and the underlying rectus muscles dissected off sharply. Rectus muscles were elevated and in the midline. Peritoneum was entered sharply. Peritoneal incision was extended inferiorly and superiorly. The pelvis was explored and minimal hemoperitoneum was encountered. There was a right ectopic involving the right fallopian tube measuring approximate 5 cm. This is not actively ruptured. The bowel was packed away to allow for visualization and the fallopian tube was elevated on the right. The LigaSure device was then utilized to transect the mesial salpinx thus removing the fallopian tube and ectopic intact. The right ovary was somewhat adherent to this area. Bovie electrocautery was utilized for hemostasis and a single [id number] stitch was placed on the right ovary for hemostasis which was then noted. The rest the pelvis was inspected and copiously irrigated. The left fallopian tube and ovary appeared completely normal. The peritoneal edges and fascial edges were inspected and noted to be hemostatic. Bovie electrocautery was utilized on the rectus muscles for hemostasis. The fascia was then closed with 0 Vicryl suture. The subcuticular tissue was irrigated and reapproximated with 2-0 Vicryl. The skin was then closed in a subcutaneous fashion with 4-0 Vicryl suture. All counts were reported reported to me as correct. Patient's blood type is A+.
[2023-10-22] MEDS: ONDANSETRON 4 MG/2 ML VIAL IVP ONE (01:31)
[2023-10-22] MEDS: HYDROmorphone 0.5 MG/0.5 ML SYRINGE IVP ONE (01:53)
[2023-10-22] MEDS: LACTATED RINGERS 1,000 ML IV SCH (02:40)
[2023-10-22] MEDS: ACETAMINOPHEN IV (For NPO) 1,000 MG in EMPTY BAG 1 BAG IVPB ONE (02:52)
[2023-10-22] MEDS: KETOROLAC 15 MG/ML 1 ML VIAL IVP PRN (06:37)
[2023-10-22] MEDS: ACETAMINOPHEN TAB 325 MG TAB PO PRN (08:51)
[2023-10-22] MEDS: IBUPROFEN 600 MG TAB PO PRN (12:22)
--- NOTE | 2023-10-22 16:42 | P.PN ---
Subjective Progress Note Date: 10/22/23 Principal diagnosis: Ectopic Complaining of significant pain. Improved with use of oxycodone. Objective - Vital Signs Vital signs: Vital Signs Temp 98.7 F 10/22/23 15:49 Pulse 92 10/22/23 15:49 Resp 16 10/22/23 15:49 BP 103/66 10/22/23 15:49 Pulse Ox 97 10/22/23 15:49 FiO2 Intake & Output 10/21/23 10/22/23 10/22/23 18:59 06:59 18:59 Intake Total 50 Output Total 700 1125 Balance -650 -1125 Weight 90.718 kg Intake: IV 50 Output: Urine 700 1125 Uretheral (Banks) 675 Other: Voiding Method Indwelling Catheter - Constitutional General appearance: Present: average body habitus, disheveled, mild distress. Absent: no acute distress - Gastrointestinal Gastrointestinal Comment(s): Incision dressing removed, incision intact, dry no erythema or drainage. General gastrointestinal: Present: normal bowel sounds, soft, tenderness. Absent: distended - Integumentary Integumentary: Absent: rash - Psychiatric Psychiatric: Present: appropriate affect - Labs CBC & Chem 7: 10/21/23 20:05 10/21/23 20:05 Labs: Abnormal Lab Results - Last 24 Hours (Table) 10/21/23 Range/Units 20:05 Sodium 136 L (137-145) mmol/L BUN 20 H (7-17) mg/dL Glucose 111 H (74-99) mg/dL Assessment and Plan (1) Ectopic Current Visit: Yes Status: Acute Code(s): O00.90 - UNSPECIFIED ECTOPIC WITHOUT INTRAUTERINE SNOMED Code(s): 23173138 Plan: 38-year-old 3 para 10-1 woman status post right salpingectomy for ectopic . Operative findings reviewed with the patient this afternoon. She is having inadequate pain control and oxycodone has been added with significant improvement. Her vaginal bleeding has decreased. Her incision appears well healing. Anticipate discharge home tomorrow.
[2023-10-22] MEDS: SIMETHICONE 80 MG CHEWABLE PO PRN (21:23)
[2023-10-23] MEDS ORDERED: ACETAMINOPHEN TAB 325 MG TAB PO PRN (01:24)
[2023-10-23 07:40] LABS: Basophils % (A) 1 %; Eosinophils # (A) 0.2 k/uL (0-0.7); Eosinophils % (A) 3 %; HCT 31.3 % (34.0-46.0); HGB 10.2 gm/dL (11.4-16.0); Lymphocytes # (A) 1.4 k/uL (1.0-4.8); Lymphocytes % (A) 27 %; MCH 27.4 pg (25.0-35.0); MCHC 32.6 g/dL (31.0-37.0); MCV 83.9 fL (80.0-100.0); Mean Platelet Volume 8.5; Monocytes # (A) 0.4 k/uL (0-1.0); Monocytes % (A) 7 %; Neutrophils # (A) 3.3 k/uL (1.3-7.7); Neutrophils % (A) 61 %; Platelet Count 168 k/uL (150-450); RBC 3.73 m/uL (3.80-5.40); RDW 13.9 % (11.5-15.5); WBC 5.4 k/uL (3.8-10.6)
[2023-10-23 08:27] VITALS: BP 131/78; PULSE 93; RESP 16; TEMP 98.4
--- NOTE | 2023-10-23 08:29 | P.DS ---
Providers Date of admission: 10/22/23 10:23 Expected date of discharge: 10/23/23 Attending physician: Vera Boyle Primary care physician: Angelia Victor - Discharge Diagnosis(es) (1) Ectopic Current Visit: Yes Status: Acute Hospital Course: This is a 38-year-old 3 para 10-1 woman who presented with a three-week history of vaginal bleeding and 3 day history of worsening pelvic and abdominal pain. She was found to have beta hCG of greater than 21,000 and on ultrasound no evidence of intrauterine and a 4 cm complex right adnexal mass consistent with ectopic . She was taken to the operating room where she underwent an exploratory laparotomy. Findings at the time of surgery were consistent with a right fallopian tube ectopic that was not ruptured. This is approximate 5 cm in size. She underwent a right salpingectomy. She had a mild hemoperitoneum. Her postoperative course was unremarkable. By postoperative day #1 she was ambulating and voiding. She was passing flatus however did not have a bowel movement yet she was tolerating a general diet and her pain was adequately controlled. Her postoperative labs were all within normal limits her vital signs were stable. She was therefore discharged home with routine instructions for care and follow-up. Patient Condition at Discharge: Good Plan - Discharge Summary New Discharge Prescriptions: New Ibuprofen [Motrin] 800 mg PO Q6HR PRN #30 tab PRN Reason: Mild Discomfort No Action modafiniL [Provigil] 200 mg PO DAILY Discharge Medication List modafiniL [Provigil] 200 mg PO DAILY 10/09/21 [History] Ibuprofen [Motrin] 800 mg PO Q6HR PRN #30 tab 10/23/23 [Rx] Follow up Appointment(s)/Referral(s): Vera Boyle MD [STAFF PHYSICIAN] - 2 Weeks Activity/Diet/Wound Care/Special Instructions: The office in 2 weeks postoperatively. May use [id number] Tylenol extra strength alternating with ibuprofen 800 mg every 4-6 hours as needed for pain. No heavy lifting. Contact the office with any concerning signs or symptoms including heavy vaginal bleeding, foul vaginal discharge, redness or signs of infection of the incision, redness or swelling of the lower extremities, severe abdominal or pelvic pain. Discharge Disposition: HOME SELF-CARE
== END 2023-10-23 10:20 | disposition home or self-care (01) | DRG 817 ==
LOC: EC 19:42 → 4FBP 23:22 → OBSVTOIN 10-22 10:23
PROVIDERS: ADMIT Obstetrics & Gynecology; ATTEND Obstetrics & Gynecology
PROC: 10T20ZZ Resection of Products of Conception, Ectopic, Open Approach (ICD-10-PCS; principal; 2023-10-22 00:21)
PROC: 0UT50ZZ Resection of Right Fallopian Tube, Open Approach (ICD-10-PCS; principal; 2023-10-22 00:21)
DX: O00.101 Right tubal pregnancy without intrauterine pregnancy (principal); K66.1 Hemoperitoneum; F32.A Depression, unspecified; F41.9 Anxiety disorder, unspecified; E07.9 Disorder of thyroid, unspecified; F43.10 Post-traumatic stress disorder, unspecified; Z88.5 Allergy status to narcotic agent; Z85.41 Personal history of malignant neoplasm of cervix uteri; Z87.891 Personal history of nicotine dependence; Z79.899 Other long term (current) drug therapy
CPT/HCPCS: 36415; 76801; 76817; 80053; 84702; 85025; 85610; 85730; 86850; 86900; 86901; 88305; 96360; 96361; 99285

== ENCOUNTER 2024-07-02 06:35 | Day surgery (SDC) | payer OTHER ==
[2024-07-02 07:04] VITALS: TEMP 97.6
[2024-07-02] MEDS: LACTATED RINGERS 1,000 ML IV SCH (07:07)
[2024-07-02] MEDS: IV FLUID CONTINUATION 1,000 ML IV ONE (07:07)
[2024-07-02] MEDS ORDERED: LIDOCAINE 1% INJ 10MG/ML (20 ML MDV) ONE (07:21)
[2024-07-02] MEDS ORDERED: PROPOFOL 10 MG/ML 20 ML VIAL IV ONE (07:21)
--- NOTE | 2024-07-02 07:41 | P.PCN ---
Date of Procedure: 07/02/24 Procedure(s) Performed: Brief history: Patient is a pleasant 39-year-old white female scheduled for an elective upper endoscopy as well as colonoscopy as a part of evaluation of GERD/significant change in bowel habits for the last 3 months duration Procedure performed: Esophagogastroduodenoscopy with biopsy. Colonoscopy Preoperative diagnosis: GERD Change in bowel habits Anesthesia: MAC Procedure: After informed consent was obtained from the patient was brought into the endoscopy unit and IV sedation was administered by anesthesia under continuous monitoring. Initially upper endoscopy was done. The Olympus GF 160 video endoscope was inserted inserted into the mouth and esophagus intubated without any difficulty and was gradually advanced into the stomach and duodenum and carefully examined. The bulb and second part of the duodenum appeared normal. The scope was then withdrawn into the stomach adequately insufflated with air and upon careful examination the antrum had mild gastritis and biopsies were done for this area. Body, cardia and fundus appeared normal. The scope was then withdrawn into the esophagus. Small hiatal hernia noted. The GE junction was located at 37 cm to the incisors. It appeared regular with no erythema erosions or ulcerations. Rest of the esophagus appeared normal. Patient tolerated the procedure well. At this time the patient continued to remain sedation. Initial digital rectal examination was normal. Olympus CF 160 video colonoscope was then inserted into the rectum and gradually advanced to the cecum without any difficulty. Careful examination was performed as the scope was gradually being withdrawn. The prep was excellent. The cecum, ascending colon, transverse colon, descending colon, sigmoid colon and rectum appeared normal. Retroflexion was performed in the rectum and no lesions were noted. Patient tolerated the procedure well. Impression: 1. Upper endoscopy revealed small hiatal hernia and mild antral gastritis 2. Colonoscopy was within normal limits with no evidence of colorectal neoplasia Recommendations: Findings of this examination were discussed with the patient as well as her family. She was advised to follow with the biopsy results. Continue current medications and follow antireflux measures. Continue with MiraLAX 1 scoop twice daily. Follow-up in the office in 2 weeks. Recommend repeat screening colonoscopy in 10 years..
[2024-07-02 08:01] VITALS: BP 111/67; PULSE 80; RESP 18
== END 2024-07-02 08:33 | disposition home or self-care (01) ==
LOC: ORWHC2ENDO 06:35
PROVIDERS: ATTEND Internal Medicine Gastroenterology
DX: R19.4 Change in bowel habit (principal); K21.9 Gastro-esophageal reflux disease without esophagitis; K29.50 Unspecified chronic gastritis without bleeding; K44.9 Diaphragmatic hernia without obstruction or gangrene; F41.9 Anxiety disorder, unspecified; F32.A Depression, unspecified; F12.90 Cannabis use, unspecified, uncomplicated; Z85.41 Personal history of malignant neoplasm of cervix uteri; Z79.899 Other long term (current) drug therapy; Z90.49 Acquired absence of other specified parts of digestive tract; Z88.5 Allergy status to narcotic agent
CPT/HCPCS: 81025; 45378; 43239; J2003; J2704; 88305